=== PATIENT | male | born 1970 | race Caucasian/White ===

== ENCOUNTER 2018-07-05 11:43 | Inpatient (IN) | payer BC ==
[2018-07-05 12:12] VITALS: BMI 31.6
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
[2018-07-05] MEDS ORDERED: hydrOXYzine PAMOATE 50 MG CAPSULE (FP) PO PRN (16:04)
[2018-07-05] MEDS ORDERED: guaiFENesin/D-METHORPHAN HB 10 ML UNIT-DOSE CUPS PO PRN (16:04)
[2018-07-05] MEDS ORDERED: LOPERAMIDE HCL 2 MG CAPSULE PO PRN (16:04)
[2018-07-05] MEDS ORDERED: IBUPROFEN 400 MG TABLET (FP) PO PRN (16:04)
[2018-07-05] MEDS ORDERED: P-EPHED 60MG/TRIPROLIDI 2.5MG TABLET PO PRN (16:04)
[2018-07-05] MEDS ORDERED: MAG HYDROX/AL HYDROX/SIMETH 30 ML UNIT-DOSE CUP PO PRN (16:04)
[2018-07-05] MEDS ORDERED: MENTHOL/PHENOL 1 EACH UD MM PRN (16:04)
[2018-07-05] MEDS ORDERED: MAGNESIUM CITRATE 300 ML BOTTLE PO PRN (16:04)
[2018-07-05] MEDS ORDERED: MAGNESIUM HYDROX 2400MG/30ML ORAL SUSPENSION 30 ML CUP PO PRN (16:04)
[2018-07-05] MEDS ORDERED: chlordiazePOXIDE HCL 25 MG CAPSULE PO PRN (16:07)
[2018-07-05] MEDS ORDERED: MELATONIN 5 MG TABLETS PO PRN (22:00)
[2018-07-05] MEDS: THIAMINE HCL 100 MG TABLET (FP) PO SCH (22:17)
[2018-07-05] MEDS: chlordiazePOXIDE HCL 25 MG CAPSULE PO SCH (22:17)
[2018-07-06] MEDS: chlordiazePOXIDE HCL 25 MG CAPSULE PO SCH ×4 (05:17→22:17)
[2018-07-06] MEDS: NICOTINE POLACRILEX 2 MG GUM BC PRN ×3 (05:19→22:18)
[2018-07-06] MEDS ORDERED: METHADONE 120 MG, METHADONE 20 MG PO ONE (09:45)
[2018-07-06] MEDS ORDERED: METHADONE HCL 10 MG TABLET PO ONE (10:00)
[2018-07-06] MEDS ORDERED: METHADONE HCL 10 MG TABLET ONE (10:11)
[2018-07-06] MEDS ORDERED: METHADONE HCL 40 MG DISPERSABLE TABLET ONE (10:11)
[2018-07-06] MEDS: NICOTINE 21 MG/24 HOURS TOPICAL PATCH TD SCH (10:13)
[2018-07-06] MEDS: PRENATAL VITAMINS W/ FOLIC ACID TABLET (FP) PO SCH (10:13)
--- NOTE | 2018-07-06 10:40 | PN ---
S CIWA - CIWA Score Nausea/Vomitin-Mild Nausea/No Vomiting Muscle Tremors: 3 Anxiety: 2 Agitation: 3 Paroxysmal Sweats: 1-Minimal Palms Moist Orientation: 1-Uncertain about Date Tacttile Disturbances: 0-None Auditory Disturbances: 0-None Visual Disturbances: 0-None Headache: 2-Mild CIWA-Ar Total Score: 13 BHS Progress Note (SOAP) Subjective: patient is doing well with librium regimen tremor sweating but feeling better today able to tolerate food and fluid better today Objective: 07/06/18 10:42 Vital Signs Temperature 98.4 F 07/06/18 09:26 Pulse Rate 66 07/06/18 09:26 Respiratory Rate 18 07/06/18 09:26 Blood Pressure 120/60 07/06/18 09:26 O2 Sat by Pulse Oximetry (%) lab pending 07/06/18 10:42 Assessment: 07/06/18 10:43 withdrawal sx Plan: continue detox
[2018-07-06 10:43] LABS: HEMATOCRIT 38.1 % (35.4-49); HEMOGLOBIN 13.1 GM/dL (11.7-16.9); MCH 32.7 pg (25.7-33.7); MCHC 34.4 g/dl (32.0-35.9); MEAN CELL VOLUME 95.1 fl (80-96); MEAN PLT VOLUME 8.5 fl (7.5-11.1); PLATELET COUNT 132 K/MM3 (134-434); RDW 12.8 % (11.9-15.9); WHITE BLOOD COUNT 3.8 K/mm3 (4.0-10.0)
--- NOTE | 2018-07-06 12:00 | EKG ---
Test Reason : Blood Pressure : / mmHG Vent. Rate : 069 BPM Atrial Rate : 069 BPM P-R Int : 130 ms QRS Dur : 096 ms QT Int : 464 ms P-R-T Axes : 015 091 036 degrees QTc Int : 497 ms NORMAL SINUS RHYTHM RIGHTWARD AXIS PROLONGED QT ABNORMAL ECG NO PREVIOUS ECGS AVAILABLE Confirmed by ANIYA JUDD, PANDA ([id number]) on 07/06/2018 12:00:07 PM Referred By: Confirmed By:PANDA KWAN MD
[2018-07-06 12:07] LABS: ALBUMIN 3.1 g/dl (3.4-5.0); ALK PHOS 69 U/L (45-117); ANION GAP 7 MMOL/L (8-16); BILIRUBIN,TOTAL 0.1 mg/dL (0.2-1); BLOOD UREA NITROGEN 16 mg/dL (7-18); CALCIUM 8.1 mg/dL (8.5-10.1); CHLORIDE 102 mmol/L (98-107); CO2 28 mmol/L (21-32); CREATININE 0.8 mg/dL (0.55-1.3); GLUCOSE,RANDOM 101 mg/dL (74-106); POTASSIUM 4.4 mmol/L (3.5-5.1); SGOT/AST 41 U/L (15-37); SGPT/ALT 46 U/L (13-61); SODIUM 136 mmol/L (136-145); TOT PROT 7.2 g/dl (6.4-8.2)
[2018-07-06] MEDS: THIAMINE HCL 100 MG TABLET (FP) PO SCH (22:18)
[2018-07-07] MEDS ORDERED: METHADONE HCL 10 MG TABLET ONE (04:48)
[2018-07-07] MEDS ORDERED: METHADONE HCL 40 MG DISPERSABLE TABLET ONE (04:49)
[2018-07-07] MEDS: chlordiazePOXIDE HCL 25 MG CAPSULE PO SCH ×3 (05:09→17:21)
[2018-07-07] MEDS: NICOTINE POLACRILEX 2 MG GUM BC PRN ×4 (05:09→22:05)
[2018-07-07] MEDS: METHADONE 120 MG, METHADONE 20 MG PO SCH (05:09)
[2018-07-07] MEDS ORDERED: METHADONE HCL 10 MG TABLET PO SCH (06:00)
[2018-07-07] MEDS: NICOTINE 21 MG/24 HOURS TOPICAL PATCH TD SCH (10:12)
[2018-07-07] MEDS: PRENATAL VITAMINS W/ FOLIC ACID TABLET (FP) PO SCH (10:12)
[2018-07-07] MEDS: ACETAMINOPHEN 325 MG TABLET (FP) PO PRN ×2 (15:16→22:04)
--- NOTE | 2018-07-07 17:19 | PN ---
S CIWA - CIWA Score Nausea/Vomitin-No Nausea/No Vomiting Muscle Tremors: 2 Anxiety: 2 Agitation: 0-Normal Activity Paroxysmal Sweats: 2 Orientation: 0-Oriented Tacttile Disturbances: 2-Mild Itch/Numbness/Burn Auditory Disturbances: 0-None Visual Disturbances: 3-Moderate Sensitivity Headache: 0-None Present CIWA-Ar Total Score: 11 BHS Progress Note (SOAP) Subjective: Tremors, Sweating. Objective: PATIENT A & O X 3, OBSERVED AMBULATING ON UNIT. IN NO ACUTE DISTRESS. 07/07/18 17:19 Vital Signs Temperature 97.6 F 07/07/18 14:00 Pulse Rate 68 07/07/18 14:00 Respiratory Rate 18 07/07/18 14:00 Blood Pressure 107/65 07/07/18 14:00 O2 Sat by Pulse Oximetry (%) Laboratory Tests 07/06/18 07/06/18 07/06/18 06:00 08:38 08:38 WBC 3.8 L RBC 4.00 Hgb 13.1 Hct 38.1 MCV 95.1 MCH 32.7 MCHC 34.4 RDW 12.8 Plt Count 132 L MPV 8.5 Sodium 136 Potassium 4.4 Chloride 102 Carbon Dioxide 28 Anion Gap 7 L BUN 16 Creatinine 0.8 Creat Clearance w eGFR > 60 Random Glucose 101 Calcium 8.1 L Total Bilirubin 0.1 L AST 41 H ALT 46 Alkaline Phosphatase 69 Total Protein 7.2 Albumin 3.1 L RPR Titer Nonreactive HIV 1&2 Antibody Screen HIV P24 Antigen 07/06/18 08:38 WBC RBC Hgb Hct MCV MCH MCHC RDW Plt Count MPV Sodium Potassium Chloride Carbon Dioxide Anion Gap BUN Creatinine Creat Clearance w eGFR Random Glucose Calcium Total Bilirubin AST ALT Alkaline Phosphatase Total Protein Albumin RPR Titer HIV 1&2 Antibody Screen Negative HIV P24 Antigen Negative LABS NOTED. Assessment: 07/07/18 17:20 WITHDRAWAL SYMPTOMS. THROMBOCYTOPENIA. LEUKOPENIA. 07/07/18 17:20 Plan: CONTINUE DETOX. INCREASE DAILY PO FLUID INTAKE.
[2018-07-07] MEDS: THIAMINE HCL 100 MG TABLET (FP) PO SCH (22:03)
[2018-07-07] MEDS: chlordiazePOXIDE 5 MG CAPSULE PO SCH (22:03)
[2018-07-08] MEDS ORDERED: METHADONE HCL 40 MG DISPERSABLE TABLET ONE (04:17)
[2018-07-08] MEDS ORDERED: METHADONE HCL 10 MG TABLET ONE (04:17)
[2018-07-08] MEDS: chlordiazePOXIDE 5 MG CAPSULE PO SCH ×3 (05:26→17:34)
[2018-07-08] MEDS: METHADONE 120 MG, METHADONE 20 MG PO SCH (05:26)
[2018-07-08] MEDS: ACETAMINOPHEN 325 MG TABLET (FP) PO PRN ×2 (05:26→22:17)
[2018-07-08] MEDS: NICOTINE POLACRILEX 2 MG GUM BC PRN ×4 (05:27→22:18)
[2018-07-08] MEDS: PRENATAL VITAMINS W/ FOLIC ACID TABLET (FP) PO SCH (10:30)
[2018-07-08] MEDS: NICOTINE 21 MG/24 HOURS TOPICAL PATCH TD SCH (10:30)
--- NOTE | 2018-07-08 15:30 | PN ---
BHS Progress Note (SOAP) Subjective: Sweats abdominal discomfort headache Objective: 07/08/18 15:22 L arm amputee Sweaty Vital Signs Temperature 98.2 F 07/08/18 13:12 Pulse Rate 60 07/08/18 13:12 Respiratory Rate 18 07/08/18 13:12 Blood Pressure 97/63 07/08/18 13:12 O2 Sat by Pulse Oximetry (%) Assessment: 07/08/18 15:30 withdrawal sx Plan: continue detox continue hydration for d/c in the a.m
[2018-07-08] MEDS: THIAMINE HCL 100 MG TABLET (FP) PO SCH (22:17)
[2018-07-08] MEDS: chlordiazePOXIDE HCL 10 MG CAPSULE PO SCH (22:17)
[2018-07-09] MEDS ORDERED: METHADONE HCL 10 MG TABLET ONE (04:49)
[2018-07-09] MEDS ORDERED: METHADONE HCL 40 MG DISPERSABLE TABLET ONE (04:49)
[2018-07-09] MEDS: METHADONE 120 MG, METHADONE 20 MG PO SCH (05:00)
[2018-07-09] MEDS: chlordiazePOXIDE HCL 10 MG CAPSULE PO SCH (05:01)
[2018-07-09] MEDS: NICOTINE POLACRILEX 2 MG GUM BC PRN (08:11)
[2018-07-09 09:17] VITALS: BP 111/71; PULSE 65; TEMP 97.8
--- NOTE | 2018-07-09 10:51 | DS ---
[facility] Detox Discharge Summary Admission Date: 07/05/18 Discharge Date: 07/09/18 - History Present History: Alcohol Dependence, Sedative Dependence Additional Comments: 48 years old male admitted on 07/05/18 for alcohol withdrawal stabilization completed detox regimen aftercare [facility] Pertinent Past History: encourage keep medication list in wallet bring in bottles of medication to aftercare appointment update medication list when change of medication important of adherence to medications - Physical Exam Results Vital Signs: Vital Signs Temperature 97.8 F 07/09/18 09:16 Pulse Rate 65 07/09/18 09:16 Respiratory Rate 16 07/09/18 09:16 Blood Pressure 111/71 07/09/18 09:16 O2 Sat by Pulse Oximetry (%) Pertinent Admission Physical Exam Findings: alcohol withdrawal sx Laboratory Last Values WBC 3.8 K/mm3 (4.0-10.0) L 07/06/18 06:00 RBC 4.00 M/mm3 (4.00-5.60) 07/06/18 06:00 Hgb 13.1 GM/dL (11.7-16.9) 07/06/18 06:00 Hct 38.1 % (35.4-49) 07/06/18 06:00 MCV 95.1 fl (80-96) 07/06/18 06:00 MCH 32.7 pg (25.7-33.7) 07/06/18 06:00 MCHC 34.4 g/dl (32.0-35.9) 07/06/18 06:00 RDW 12.8 % (11.9-15.9) 07/06/18 06:00 Plt Count 132 K/MM3 (134-434) L 07/06/18 06:00 MPV 8.5 fl (7.5-11.1) 07/06/18 06:00 Sodium 136 mmol/L (136-145) 07/06/18 08:38 Potassium 4.4 mmol/L (3.5-5.1) 07/06/18 08:38 Chloride 102 mmol/L (98-107) 07/06/18 08:38 Carbon Dioxide 28 mmol/L (21-32) 07/06/18 08:38 Anion Gap 7 MMOL/L (8-16) L 07/06/18 08:38 BUN 16 mg/dL (7-18) 07/06/18 08:38 Creatinine 0.8 mg/dL (0.55-1.3) 07/06/18 08:38 Creat Clearance w eGFR > 60 (>60) 07/06/18 08:38 Random Glucose 101 mg/dL (74-106) 07/06/18 08:38 Calcium 8.1 mg/dL (8.5-10.1) L 07/06/18 08:38 Total Bilirubin 0.1 mg/dL (0.2-1) L 07/06/18 08:38 AST 41 U/L (15-37) H 07/06/18 08:38 ALT 46 U/L (13-61) 07/06/18 08:38 Alkaline Phosphatase 69 U/L (45-117) 07/06/18 08:38 Total Protein 7.2 g/dl (6.4-8.2) 07/06/18 08:38 Albumin 3.1 g/dl (3.4-5.0) L 07/06/18 08:38 RPR Titer Nonreactive (NONREACTIVE) 07/06/18 08:38 HIV 1&2 Antibody Screen Negative 07/06/18 08:38 HIV P24 Antigen Negative 07/06/18 08:38 lab noted calcium rich food bring lab report and medication list to methadone maintenance treatment program and aftercare facility - Treatment Hospital Course: Detox Protocol Followed, Detoxed Safely, Responded well, Discharged Condition Good, Rehab Referral Accepted Patient has Accepted a Rehab Referral to: [facility] - Medication Discharge Medications: Ambulatory Orders Methadone [Dolophine -] 140 mg PO DAILY 07/05/18 - Diagnosis (1) Alcohol dependence with uncomplicated withdrawal Status: Acute (2) Sedative, hypnotic or anxiolytic dependence with withdrawal, uncomplicated Status: Acute (3) Nicotine dependence Status: Acute Qualifiers: Nicotine product type: cigarettes Substance use status: in withdrawal Qualified Code(s): F17.213 - Nicotine dependence, cigarettes, with withdrawal (4) Methadone maintenance therapy patient Status: Chronic (5) HTN (hypertension) Status: Chronic Qualifiers: Hypertension type: essential hypertension Qualified Code(s): I10 - Essential (primary) hypertension - AMA Did Patient Leave Against Medical Advice: No
== END 2018-07-09 09:32 | disposition home or self-care (01) | DRG 773 ==
LOC: YASAS 11:43 → Y3N 17:09
PROVIDERS: ADMIT Surgery; ATTEND Surgery
PROC: HZ2ZZZZ Detoxification Services for Substance Abuse Treatment (ICD-10-PCS; principal; 2018-07-05)
DX: F10.230 Alcohol dependence with withdrawal, uncomplicated (principal); F13.230 Sedative, hypnotic or anxiolytic dependence with withdrawal, uncomplicated; F11.20 Opioid dependence, uncomplicated; F17.210 Nicotine dependence, cigarettes, uncomplicated; F41.9 Anxiety disorder, unspecified; I10 Essential (primary) hypertension; D69.6 Thrombocytopenia, unspecified; D72.819 Decreased white blood cell count, unspecified; R60.0 Localized edema; B18.2 Chronic viral hepatitis C
CPT/HCPCS: 36415; 80053; 85027; 86593; 87389; 93005; 93010

== ENCOUNTER 2018-10-26 11:57 | Inpatient (IN) | payer BC ==
[2018-10-26 15:44] VITALS: BMI 29.9
--- NOTE | 2018-10-26 16:51 | HP ---
CIWA Score Nausea/Vomitin Muscle Tremors: 2 Anxiety: 2 Agitation: 0-Normal Activity Paroxysmal Sweats: 2 Orientation: 1-Uncertain about Date Tacttile Disturbances: 3-Moderate Itch/Numb/Burn ("toes feel like they are on fire") Auditory Disturbances: 0-None Visual Disturbances: 0-None Headache: 2-Mild CIWA-Ar Total Score: 15 - Admission Criteria OASAS Guidelines: Admission for Medically Managed Detox: Requires at least one of the followin. CIWA greater than 12 2. Seizures within the past 24 hours 3. Delirium tremens within the past 24 hours 4. Hallucinations within the past 24 hours 5. Acute intervention needed for co occurring medical disorder 6. Acute intervention needed for co occurring psychiatric disorder 7. Severe withdrawal that cannot be handled at a lower level of care (continued vomiting, continued diarrhea, abnormal vital signs) requiring intravenous medication and/or fluids 8. Patient presents the following: CIWA greater than 12 Admission Criteria Met: Admission criteria met Admission ROS [facility] - [facility] Chief Complaint: withdrawal symptoms Allergies/Adverse Reactions: Allergies Allergy/AdvReac Type Severity Reaction Status Date / Time No Known Allergies Allergy Verified 10/26/18 15:33 History of Present Illness: Patient is a 48 yo male with hx of alcohol dependence is here seeking inpatient d/t [facility] last detox Jun at [facility], reports relapsed soon after. MMTP START on maintenance 140 mg, last medicated today. PMHX: left glaucoma blind, left above the elbow amputation, Hep C untreated, hx of falls while intoxicated reports last fall four days ago Last fall four days ago. Psych: anxiety, PTSD, depression Denies SI/HI Patient continues on clonazepam (see [employer]), ti aware will not receive klonopins in the unit, agrees with [facility] for ETOH detox. Others' Prescriptions Patient Name: Lazaro Stinson Date: 1970 Address: [address] [place] [address] Sex: Male Rx Written Rx Dispensed Drug Quantity Days Supply Prescriber Name 10/03/2018 10/03/2018 clonazepam 2 mg tablet 120 30 Bala Bryson 09/04/2018 09/06/2018 clonazepam 2 mg tablet 120 30 Bala Bryson 08/09/2018 08/09/2018 clonazepam 2 mg tablet 120 30 Bala Bryson 07/11/2018 07/11/2018 clonazepam 2 mg tablet 120 30 Bala Bryson 06/08/2018 06/08/2018 clonazepam 2 mg tablet 120 30 Adelaide Bala Exam Limitations: No Limitations - Ebola screening Have you traveled outside of the country in the last 21 days: No (N) Have you had contact with anyone from an Ebola affected area: No Do you have a fever: No - Review of Systems Constitutional: Chills, Loss of Appetite, Other (fatigue) EENT: reports: See HPI Respiratory: reports: No Symptoms reported Cardiac: reports: No Symptoms Reported GI: reports: Diarrhea, Nausea, Poor Appetite, Indigestion Musculoskeletal: reports: Back Pain Integumentary: reports: No Symptoms Reported Neuro: reports: Headache, Tingling (both feet) Endocrine: reports: No Symptoms Reported Hematology: reports: See HPI Psychiatric: reports: Orientated x3, Anxious Other Systems: Reviewed and Negative Patient History - Patient Medical History Hx Anemia: No Hx Asthma: No Hx Chronic Obstructive Pulmonary Disease (COPD): No Hx Cancer: No Hx Cardiac Disorders: No Hx Congestive Heart Failure: No Hx Hypertension: Yes (not currently on meds.) Hx Hypercholesterolemia: No Hx Pacemaker: No HX Cerebrovascular Accident: No Hx Seizures: No Hx Dementia: No Hx Diabetes: No Hx Gastrointestinal Disorders: No Hx Liver Disease: No Hx Genitourinary Disorders: No Hx Sexually Transmitted Disorders: No Hx Renal Disease (ESRD): No Hx Thyroid Disease: No Hx Human Immunodeficiency Virus (HIV): No Hx Hepatitis C: Yes (UNTREATED) Hx Depression: Yes Hx Suicide Attempt: No Hx Bipolar Disorder: No Hx Schizophrenia: No - Patient Surgical History Past Surgical History: Yes Hx Neurologic Surgery: No Hx Cataract Extraction: No Hx Cardiac Surgery: No Hx Lung Surgery: No Hx Breast Surgery: No Hx Breast Biopsy: No Hx Abdominal Surgery: Yes (Umbillical hernia repair in 2009) Hx Appendectomy: No Hx Cholecystectomy: No Hx Genitourinary Surgery: No Hx Section: No Hx Orthopedic Surgery: Yes Other Surgical History: L arm ambutation above the elbow at age 21 yrs Anesthesia Reaction: No - PPD History Documented Results: Negative w/proof Date: 07/07/18 PPD to be Administered?: No - Smoking Cessation Smoking history: Current every day smoker Have you smoked in the past 12 months: Yes Aproximately how many cigarettes per day: 20 Cigars Per Day: 0 Hx Chewing Tobacco Use: No Initiated information on smoking cessation: Yes 'Breaking Loose' booklet given: 10/26/18 - Substance & Tx. History Hx Alcohol Use: Yes Hx Substance Use: Yes Substance Use Type: Alcohol Hx Substance Use Treatment: Yes ([facility] Detox 06/2018) - Substances abused Alcohol Substance route: Oral Frequency: Daily Amount used: 2 x six pack per day ( and + 2 pints 2x per week) Age of first use: 12 Date of last use: 10/25/18 Alprazolam (Xanax) Substance route: Oral Frequency: Daily Amount used: 2-3 mg Age of first use: 18 Date of last use: 10/19/18 Benzodiazepine (Klonopin) Substance route: Oral Frequency: Daily Amount used: 2-3 mg Age of first use: 18 Date of last use: 10/26/18 Family Disease History - Family Disease History Family Disease History: Diabetes: Mother, Son Admission Physical Exam [facility] - Vital Signs Vital Signs: Vital Signs - 24 hr 10/26/18 15:32 Temperature 97.0 F L Pulse Rate 61 Respiratory 18 Rate Blood Pressure 120/73 - Physical General Appearance: Yes: Disheveled, Mild Distress, Thin, Sweating, Anxious HEENTM: Yes: EOMI, Hearing grossly Normal, Normal ENT Inspection, Other ( impaired vision left eye ( left eye pupil dilated), poor dentition) Respiratory: Yes: Chest Non-Tender, Lungs Clear, Normal Breath Sounds, No Respiratory Distress, No Accessory Muscle Use Neck: Yes: Within Normal Limits Breast: Yes: Breast Exam Deferred Cardiology: Yes: Regular Rhythm, Regular Rate Abdominal: Yes: Normal Bowel Sounds, Non Tender, Soft, Protuberent Genitourinary: Yes: Within Normal Limits Back: Yes: Normal Inspection Musculoskeletal: Yes: full range of Motion, Gait Steady Extremities: Yes: Normal Capillary Refill, Normal Inspection, Normal Range of Motion, Non-Tender Neurological: Yes: manager product design II-XII NML intact, Fully Oriented, Alert, Motor Strength 5/5, Depressed Affect Integumentary: Yes: Normal Color, Warm, Diaphoresis Lymphatic: Yes: Within Normal Limits - Diagnostic (1) Alcohol dependence with uncomplicated withdrawal Current Visit: Yes Status: Acute (2) Nicotine dependence Current Visit: Yes Status: Acute Qualifiers: Nicotine product type: cigarettes Substance use status: in withdrawal Qualified Code(s): F17.213 - Nicotine dependence, cigarettes, with withdrawal (3) HTN (hypertension) Current Visit: Yes Status: Chronic Qualifiers: Hypertension type: essential hypertension Qualified Code(s): I10 - Essential (primary) hypertension (4) Methadone maintenance therapy patient Current Visit: Yes Status: Chronic Comment: on methadone 140 mg, last medicated today (5) Blindness of left eye Current Visit: Yes Status: Acute (6) Chronic hepatitis C Current Visit: Yes Status: Chronic Cleared for Admission S - Detox or Rehab [facility] Level of Care: Medically Managed Detox Regimen/Protocol: Librium Breathalyzer - Breathalyzer Breathalyzer: 0 Urine Drug Screen - Test Device Lot number: [id number] Expiration date: 07/13/20 - Control Is test valid?: Yes - Results Drug screen NEGATIVE: No Urine drug screen results: THC-Marijuana, PRAVIN-Cocaine, MTD-Methadone, BZO- Benzodiazepines Inpatient Rehab Admission - Rehab Decision to Admit Inpatient rehab admission?: No
[2018-10-26] MEDS ORDERED: BISMUTH SUBSALICYLATE 524 MG/30 ML UD PO PRN (16:58)
[2018-10-26] MEDS ORDERED: MAGNESIUM CITRATE 300 ML BOTTLE PO PRN (16:58)
[2018-10-26] MEDS ORDERED: MAGNESIUM HYDROX 2400MG/30ML ORAL SUSPENSION 30 ML CUP PO PRN (16:58)
[2018-10-26] MEDS ORDERED: MENTHOL/PHENOL 1 EACH UD MM PRN (16:58)
[2018-10-26] MEDS ORDERED: chlordiazePOXIDE HCL 25 MG CAPSULE PO PRN (16:58)
[2018-10-26] MEDS: THIAMINE HCL 100 MG TABLET (FP) PO SCH (22:20)
[2018-10-26] MEDS: chlordiazePOXIDE HCL 25 MG CAPSULE PO SCH (22:20)
[2018-10-26] MEDS: NICOTINE POLACRILEX 2 MG GUM BUC PRN (22:21)
[2018-10-27] MEDS: chlordiazePOXIDE HCL 25 MG CAPSULE PO SCH ×4 (05:47→22:04)
[2018-10-27] MEDS: NICOTINE POLACRILEX 2 MG GUM BUC PRN ×5 (05:48→22:07)
[2018-10-27] MEDS ORDERED: METHADONE HCL 10 MG TABLET PO ONE (08:45)
[2018-10-27] MEDS ORDERED: METHADONE 120 MG, METHADONE 20 MG PO ONE (09:30)
[2018-10-27 09:58] LABS: HEMATOCRIT 35.3 % (35.4-49); HEMOGLOBIN 11.9 GM/dL (11.7-16.9); MCH 31.4 pg (25.7-33.7); MCHC 33.8 g/dl (32.0-35.9); MEAN CELL VOLUME 92.8 fl (80-96); MEAN PLT VOLUME 7.7 fl (7.5-11.1); PLATELET COUNT 156 K/MM3 (134-434); RDW 14.4 % (11.9-15.9); WHITE BLOOD COUNT 4.5 K/mm3 (4.0-10.0)
--- NOTE | 2018-10-27 10:05 | CONSULT ---
[facility] Psychiatric Consult - Data Date of interview: 10/27/18 Admission source: [facility] Identifying data: Patient is a 48 year old single, father of three, unemployed, domiciled, and is supported by [facility]. This is one of multiple admissions for patient. Patient admitted to for alcohol and benzodiazepine dependence. Substance Abuse History: - Smoking Cessation. Smoking history: Current every day smoker. Have you smoked in the past 12 months: Yes. Aproximately how many cigarettes per day: 20. Cigars Per Day: 0. Hx Chewing Tobacco Use: No. Initiated information on smoking cessation: Yes. 'Breaking Loose' booklet given : 10/26/18. - Substance & Tx. History. Hx Alcohol Use: Yes. Hx Substance Use : Yes. Substance Use Type: Alcohol. Hx Substance Use Treatment: Yes ([facility] Detox 06/2018). - Substances abused. Alcohol. Substance route: Oral. Frequency: Daily. Amount used: 2 x six pack per day ( and + 2 pints 2x per week). Age of first use: 12. Date of last use: 10/25/18. Alprazolam (Xanax ). Substance route: Oral. Frequency: Daily. Amount used: 2-3 mg. Age of first use: 18. Date of last use: 10/19/18. Benzodiazepine (Klonopin). Substance route: Oral. Frequency: Daily. Amount used: 2-3 mg. Age of first use: 18. Date of last use: 10/26/18 Medical History: hypertension, Hep C, Umbillical hernia repair in 2009, L arm ambutation above the elbow at age 21 yrs Psychiatric History: Patient denies h/o psychiatric hospitalizations and suicide attempt. He refuses to elaborate on his h/o outpatient psychiatric care. As per external records he is prescribed trazodone 200mg HS + Klonopin 2mg QID. Patient is also on Methadone maintenance of 140mg daily. Patient politely refusing to elaborate on psychotropic medications. Physical/Sexual Abuse/Trauma History: denies. Mental Status Exam - Mental Status Exam Alert and Oriented to: Time, Place, Person Cognitive Function: Good Patient Appearance: Well Groomed Mood: Euthymic Affect: Mood Congruent Patient Behavior: Guarded Speech Pattern: Appropriate Voice Loudness: Moderately Soft/Quiet Thought Process: Goal Oriented Hallucinations: Denies Suicidal Ideation: Denies Homicidal Ideation: Denies Insight/Judgement: Poor Sleep: Poorly Appetite: Fair Muscle strength/Tone: Normal Gait/Station: Normal Psychiatric Findings - Problem List ([place] 1, 2,3) (1) Alcohol dependence with uncomplicated withdrawal Current Visit: Yes Status: Acute (2) Nicotine dependence Current Visit: Yes Status: Acute Qualifiers: Nicotine product type: cigarettes Substance use status: in withdrawal Qualified Code(s): F17.213 - Nicotine dependence, cigarettes, with withdrawal (3) Methadone maintenance therapy patient Current Visit: Yes Status: Chronic Comment: on methadone 140 mg, last medicated today - Initial Treatment Plan Initial Treatment Plan: Psychoeducation provided. Detoxification in progress. Observation.
[2018-10-27 10:16] LABS: ALBUMIN 2.7 g/dl (3.4-5.0); BILIRUBIN,TOTAL 0.2 mg/dL (0.2-1); BLOOD UREA NITROGEN 9.5 mg/dL (7-18); CALCIUM 8.3 mg/dL (8.5-10.1); CREATININE 0.7 mg/dL (0.55-1.3); POTASSIUM 4.5 mmol/L (3.5-5.1); TOT PROT 6.2 g/dl (6.4-8.2)
[2018-10-27] MEDS: NICOTINE 14 MG/24 HOURS TOPICAL PATCH TD SCH (10:38)
[2018-10-27] MEDS: PRENATAL VITAMINS W/ FOLIC ACID TABLET (FP) PO SCH (10:38)
[2018-10-27] MEDS ORDERED: METHADONE HCL 10 MG TABLET ONE (10:42)
[2018-10-27] MEDS ORDERED: METHADONE HCL 40 MG DISPERSABLE TABLET ONE (10:42)
--- NOTE | 2018-10-27 12:10 | PN ---
S CIWA - CIWA Score Nausea/Vomitin-Mild Nausea/No Vomiting Muscle Tremors: 1-None Visible, but [place] Anxiety: 1-Mildly Anxious Agitation: 1-Slight > Activity Paroxysmal Sweats: 3 Orientation: 0-Oriented Tacttile Disturbances: 1-Very Mild Itch/Numbness Auditory Disturbances: 0-None Visual Disturbances: 0-None Headache: 1-Very Mild CIWA-Ar Total Score: 9 BHS Progress Note (SOAP) Subjective: interrupted sleep ,sweats Objective: 10/27/18 12:08 pt aox3 in nad ambulating wel Assessment: 10/27/18 12:08 withdrawal sx's left arm amputee Plan: cont. detox increase fluids motrin prn methadone verified.
[2018-10-27] MEDS: DORZOLAMIDE 2% HCL OPHTHALMIC SOLUTION 10 ML BOTTLE OS SCH ×2 (14:33→22:06)
[2018-10-27] MEDS: IBUPROFEN 400 MG TABLET (FP) PO PRN (17:24)
[2018-10-27] MEDS: THIAMINE HCL 100 MG TABLET (FP) PO SCH (22:04)
[2018-10-28] MEDS ORDERED: METHADONE HCL 10 MG TABLET ONE (05:51)
[2018-10-28] MEDS ORDERED: METHADONE HCL 40 MG DISPERSABLE TABLET ONE (05:51)
[2018-10-28] MEDS ORDERED: METHADONE HCL 10 MG TABLET PO SCH (06:00)
[2018-10-28] MEDS: METHADONE 120 MG, METHADONE 20 MG PO SCH (06:04)
[2018-10-28] MEDS: DORZOLAMIDE 2% HCL OPHTHALMIC SOLUTION 10 ML BOTTLE OS SCH ×3 (06:06→22:28)
[2018-10-28] MEDS: chlordiazePOXIDE HCL 25 MG CAPSULE PO SCH ×3 (06:06→18:00)
[2018-10-28] MEDS: IBUPROFEN 400 MG TABLET (FP) PO PRN (10:40)
[2018-10-28] MEDS: NICOTINE POLACRILEX 2 MG GUM BUC PRN ×2 (10:42→18:00)
[2018-10-28] MEDS: NICOTINE 14 MG/24 HOURS TOPICAL PATCH TD SCH (10:42)
[2018-10-28] MEDS: PRENATAL VITAMINS W/ FOLIC ACID TABLET (FP) PO SCH (10:42)
--- NOTE | 2018-10-28 17:52 | PN ---
[facility] CIWA - CIWA Score Nausea/Vomitin-No Nausea/No Vomiting Muscle Tremors: 3 Anxiety: 3 Agitation: 2 Paroxysmal Sweats: 3 Orientation: 0-Oriented Tacttile Disturbances: 0-None Auditory Disturbances: 0-None Visual Disturbances: 0-None Headache: 0-None Present CIWA-Ar Total Score: 11 S Progress Note (SOAP) Subjective: sleep disturbance anxiety Objective: 10/28/18 17:51 A & O x 3 in bed no acute distress Vital Signs Temperature 98.2 F 10/28/18 14:59 Pulse Rate 77 10/28/18 14:59 Respiratory Rate 18 10/28/18 14:59 Blood Pressure 120/78 10/28/18 14:59 O2 Sat by Pulse Oximetry (%) Assessment: 10/28/18 17:51 withdrawal sx Plan: continue detox
[2018-10-28] MEDS: MELATONIN 5 MG TABLETS PO PRN (22:27)
[2018-10-28] MEDS: THIAMINE HCL 100 MG TABLET (FP) PO SCH (22:28)
[2018-10-28] MEDS: chlordiazePOXIDE HCL 10 MG CAPSULE PO SCH (22:29)
[2018-10-28] MEDS ORDERED: chlordiazePOXIDE HCL 10 MG CAPSULE PO PRN (23:00)
[2018-10-29] MEDS ORDERED: METHADONE HCL 40 MG DISPERSABLE TABLET ONE (05:25)
[2018-10-29] MEDS ORDERED: METHADONE HCL 10 MG TABLET ONE (05:25)
[2018-10-29] MEDS: METHADONE 120 MG, METHADONE 20 MG PO SCH (06:11)
[2018-10-29] MEDS: chlordiazePOXIDE HCL 10 MG CAPSULE PO SCH ×4 (06:12→22:09)
[2018-10-29] MEDS: IBUPROFEN 400 MG TABLET (FP) PO PRN ×2 (06:13→22:09)
[2018-10-29] MEDS: NICOTINE POLACRILEX 2 MG GUM BUC PRN ×2 (06:13→17:04)
[2018-10-29] MEDS: DORZOLAMIDE 2% HCL OPHTHALMIC SOLUTION 10 ML BOTTLE OS SCH ×3 (06:17→22:09)
[2018-10-29] MEDS: NICOTINE 14 MG/24 HOURS TOPICAL PATCH TD SCH (10:12)
[2018-10-29] MEDS: PRENATAL VITAMINS W/ FOLIC ACID TABLET (FP) PO SCH (10:12)
--- NOTE | 2018-10-29 13:56 | PN ---
[facility] CIWA - CIWA Score Nausea/Vomitin-No Nausea/No Vomiting Muscle Tremors: 3 Anxiety: 3 Agitation: 3 Paroxysmal Sweats: 2 Orientation: 0-Oriented Tacttile Disturbances: 0-None Auditory Disturbances: 0-None Visual Disturbances: 0-None Headache: 0-None Present CIWA-Ar Total Score: 11 S Progress Note (SOAP) Subjective: sweats gas/bloating interrupted sleep Objective: 10/29/18 13:55 Vital Signs Temperature 97.9 F 10/29/18 09:28 Pulse Rate 68 10/29/18 09:28 Respiratory Rate 18 10/29/18 09:28 Blood Pressure 116/73 10/29/18 09:28 O2 Sat by Pulse Oximetry (%) Laboratory Tests 10/27/18 10/27/18 10/27/18 07:00 07:00 07:00 WBC 4.5 RBC 3.80 L Hgb 11.9 Hct 35.3 L MCV 92.8 MCH 31.4 MCHC 33.8 RDW 14.4 D Plt Count 156 MPV 7.7 Sodium 142 Potassium 4.5 Chloride 106 Carbon Dioxide 35 H Anion Gap 1 L BUN 9.5 Creatinine 0.7 Est GFR (CKD-EPI)AfAm 127.53 Est GFR (CKD-EPI)NonAf 110.04 Random Glucose 102 Calcium 8.3 L Total Bilirubin 0.2 AST 57 H ALT 98 H Alkaline Phosphatase 61 Total Protein 6.2 L Albumin 2.7 L RPR Titer Nonreactive aaox3 ambulating no acute distress Assessment: 10/29/18 13:55 mild withdrawal sx Plan: continue detox increase fluids gas x ordered bently prn
[2018-10-29] MEDS: METHOCARBAMOL 500 MG TABLET PO PRN (14:49)
[2018-10-29] MEDS: THIAMINE HCL 100 MG TABLET (FP) PO SCH (22:09)
[2018-10-29] MEDS: MELATONIN 5 MG TABLETS PO PRN (22:09)
[2018-10-30] MEDS ORDERED: METHADONE HCL 10 MG TABLET ONE (04:32)
[2018-10-30] MEDS ORDERED: METHADONE HCL 40 MG DISPERSABLE TABLET ONE (04:33)
[2018-10-30] MEDS: METHADONE 120 MG, METHADONE 20 MG PO SCH (05:19)
[2018-10-30] MEDS: IBUPROFEN 400 MG TABLET (FP) PO PRN (05:20)
[2018-10-30] MEDS: DORZOLAMIDE 2% HCL OPHTHALMIC SOLUTION 10 ML BOTTLE OS SCH ×3 (05:20→22:16)
[2018-10-30] MEDS: SIMETHICONE 80 MG TAB.CHEW (FP) PO PRN ×2 (06:51→22:20)
[2018-10-30] MEDS: PRENATAL VITAMINS W/ FOLIC ACID TABLET (FP) PO SCH (10:22)
[2018-10-30] MEDS: METHOCARBAMOL 500 MG TABLET PO PRN ×2 (10:23→18:18)
[2018-10-30] MEDS: chlordiazePOXIDE HCL 10 MG CAPSULE PO SCH ×2 (10:24→22:17)
[2018-10-30] MEDS: NICOTINE 14 MG/24 HOURS TOPICAL PATCH TD SCH (10:24)
--- NOTE | 2018-10-30 13:07 | PN ---
S CIWA - CIWA Score Nausea/Vomitin-No Nausea/No Vomiting Muscle Tremors: 2 Anxiety: 1-Mildly Anxious Agitation: 1-Slight > Activity Paroxysmal Sweats: 3 Orientation: 0-Oriented Tacttile Disturbances: 0-None Auditory Disturbances: 0-None Visual Disturbances: 0-None Headache: 0-None Present CIWA-Ar Total Score: 7 BHS Progress Note (SOAP) Subjective: sweats anxiety Objective: 10/30/18 13:07 Vital Signs Temperature 97.5 F L 10/30/18 09:16 Pulse Rate 61 10/30/18 09:16 Respiratory Rate 18 10/30/18 09:16 Blood Pressure 113/67 10/30/18 09:16 O2 Sat by Pulse Oximetry (%) aaox3 ambulating no acute distress Assessment: 10/30/18 13:07 mild withdrawal sx Plan: continue detox increase fluids d/c in am
[2018-10-30] MEDS: MAG HYDROX/AL HYDROX/SIMETH 30 ML UNIT-DOSE CUP PO PRN (18:18)
[2018-10-30] MEDS: THIAMINE HCL 100 MG TABLET (FP) PO SCH (22:17)
[2018-10-31] MEDS ORDERED: METHADONE HCL 10 MG TABLET ONE (04:15)
[2018-10-31] MEDS ORDERED: METHADONE HCL 40 MG DISPERSABLE TABLET ONE (04:16)
[2018-10-31] MEDS: METHADONE 120 MG, METHADONE 20 MG PO SCH (05:36)
[2018-10-31] MEDS: DORZOLAMIDE 2% HCL OPHTHALMIC SOLUTION 10 ML BOTTLE OS SCH (05:37)
[2018-10-31] MEDS: NICOTINE POLACRILEX 2 MG GUM BUC PRN ×2 (05:39→12:08)
[2018-10-31] MEDS: MAG HYDROX/AL HYDROX/SIMETH 30 ML UNIT-DOSE CUP PO PRN (05:39)
--- NOTE | 2018-10-31 08:40 | DS ---
[facility] Detox Discharge Summary Admission Date: 10/26/18 Discharge Date: 10/31/18 - History Present History: Alcohol Dependence, Sedative Dependence, MMTP - Physical Exam Results Vital Signs: Vital Signs Temperature 97.5 F L 10/31/18 07:51 Pulse Rate 58 L 10/31/18 07:51 Respiratory Rate 18 10/31/18 07:51 Blood Pressure 123/67 10/31/18 07:51 O2 Sat by Pulse Oximetry (%) - Treatment Hospital Course: Detox Protocol Followed, Detoxed Safely, Responded well, Discharged Condition Good, Rehab Referral Accepted - Medication Discharge Medications: Ambulatory Orders Methadone [Dolophine -] 140 mg PO DAILY 07/05/18 - Diagnosis (1) Alcohol dependence with uncomplicated withdrawal Current Visit: Yes Status: Chronic (2) Blindness of left eye Current Visit: Yes Status: Chronic (3) Nicotine dependence Current Visit: Yes Status: Chronic Qualifiers: Nicotine product type: cigarettes Substance use status: uncomplicated Qualified Code(s): F17.210 - Nicotine dependence, cigarettes, uncomplicated (4) Chronic hepatitis C Current Visit: Yes Status: Chronic Qualifiers: Hepatic coma status: without hepatic coma Qualified Code(s): B18.2 - Chronic viral hepatitis C (5) HTN (hypertension) Current Visit: Yes Status: Chronic Qualifiers: Hypertension type: essential hypertension Qualified Code(s): I10 - Essential (primary) hypertension (6) Methadone maintenance therapy patient Current Visit: Yes Status: Chronic (7) PTSD (post-traumatic stress disorder) Current Visit: No Status: Acute (8) Sedative, hypnotic or anxiolytic dependence with withdrawal, uncomplicated Current Visit: Yes Status: Chronic (9) Anxiety Current Visit: No Status: Chronic (10) Edema extremities Current Visit: No Status: Chronic - AMA Did Patient Leave Against Medical Advice: No (going to his MMTP program)
[2018-10-31] MEDS ORDERED: LOPERAMIDE HCL 2 MG CAPSULE PO ONE (09:15)
[2018-10-31 10:06] VITALS: BP 127/69; PULSE 72; TEMP 98.8
[2018-10-31] MEDS: NICOTINE 14 MG/24 HOURS TOPICAL PATCH TD SCH (10:09)
[2018-10-31] MEDS: PRENATAL VITAMINS W/ FOLIC ACID TABLET (FP) PO SCH (10:09)
== END 2018-10-31 13:45 | disposition home or self-care (01) | DRG 773 ==
LOC: YASAS 11:57 → Y6N 17:45
PROVIDERS: ADMIT Surgery; ATTEND Surgery
PROC: HZ2ZZZZ Detoxification Services for Substance Abuse Treatment (ICD-10-PCS; principal; 2018-10-26)
DX: F10.230 Alcohol dependence with withdrawal, uncomplicated (principal); F13.230 Sedative, hypnotic or anxiolytic dependence with withdrawal, uncomplicated; F11.20 Opioid dependence, uncomplicated; F17.210 Nicotine dependence, cigarettes, uncomplicated; F43.10 Post-traumatic stress disorder, unspecified; F41.9 Anxiety disorder, unspecified; I10 Essential (primary) hypertension; B18.2 Chronic viral hepatitis C; H54.62 Unqualified visual loss, left eye, normal vision right eye; R60.0 Localized edema; Z89.222 Acquired absence of left upper limb above elbow
CPT/HCPCS: 36415; 80053; 85027; 86593